=== PATIENT | male | born 1990 | race Caucasian/White ===

== ENCOUNTER 2016-10-02 03:32 | Emergency (ER) | payer SELFPAY ==
[2016-10-02 04:30] VITALS: BP 126/71; PULSE 76; RESP 16; TEMP 97.4; O2SAT 99
--- NOTE | 2016-10-02 06:01 | ED PDOC ---
Upper Extremity Pain/Injury Time Seen by Provider: 10/02/16 04:42 Chief Complaint (Nursing): Upper Extremity Problem/Injury Chief Complaint (Provider): Upper Extremity Injury History Per: Patient History/Exam Limitations: no limitations Onset/Duration Of Symptoms: Days (1x) Current Symptoms Are (Timing): Still Present Severity: Moderate Additional Complaint(s): 26 year old male with no pertinent medical history presents to the ED with complaints of an upper extremity injury that occurred yesterday. He reports that he fell while skateboarding last night, and woke up in the middle of the night with a swollen elbow. He reports having difficulty fully extending and flexing his arm and moving his hand. He reports icing the area and taking ibuprofen with no relief. He denies having numbness and tingling to the area or any other injuries. PMD: Dr. Jimenez Past Medical History Reviewed: Historical Data, Nursing Documentation, Vital Signs Vital Signs: Last Vital Signs Temp 97.4 F L 10/02/16 04:23 Pulse 76 10/02/16 04:23 Resp 16 10/02/16 04:23 BP 126/71 10/02/16 04:23 Pulse Ox 99 10/02/16 04:23 - Medical History PMH: Anxiety - Surgical History Other surgeries: right ACL surgery - Family History Family History: States: No Known Family Hx - Social History Current smoker - smoking cessation education provided: No Alcohol: None Drugs: Denies - Home Medications Home Medications: Ambulatory Orders Medication Instructions Recorded Esomeprazole Magnesium [Nexium] 20 mg PO QAM #30 ecc 03/19/15 - Allergies Allergies/Adverse Reactions: Allergies Allergy/AdvReac Type Severity Reaction Status Date / Time No Known Allergies Allergy Verified 03/19/15 21:32 Review of Systems ROS Statement: Except As Marked, All Systems Reviewed And Found Negative Musculoskeletal: Positive for: Arm Pain (left elbow pain) Neurological: Negative for: Weakness, Numbness, Headache Physical Exam - Reviewed Nursing Documentation Reviewed: Yes Vital Signs Reviewed: Yes - Physical Exam Appears: Positive for: Well, Non-toxic, No Acute Distress Head Exam: Positive for: ATRAUMATIC, NORMOCEPHALIC Skin: Positive for: Normal Color, Warm, Dry Neck: Positive for: Normal, Supple Cardiovascular/Chest: Positive for: Regular Rate, Rhythm Respiratory: Positive for: Normal Breath Sounds. Negative for: Respiratory Distress Extremity: Positive for: Capillary Refill (<2 second capillaary refill. <2 second radial pulse), Other (superficial abrasion on left lateral elbow. tenderness to palpation at site. no fluctuance. 5/5 strength in all nerves. 5/5 distal pulses of hands. left elbow: moderate effusion. light touch in tact. ). Negative for: Normal ROM (full flexion and extension of left elbow limited secondary to pain) Neurologic/Psych: Positive for: Alert, Oriented (3x) - ECG O2 Sat by Pulse Oximetry: 99 (RA) Pulse Ox Interpretation: Normal Medical Decision Making Medical Decision Makin:42 Initial impression: 26 year old male with left elbow pain. Rule out fracture. Initial plan: * motrin tab 600mg PO * XRay left 3 views * apply ice to affected area * reevaluation Scribe Attestation: Documented by Lauren Vogt, acting as a scribe for Carol Moreau MD. Provider Scribe Attestation: All medical record entries made by the Scribe were at my direction and personally dictated by me. I have reviewed the chart and agree that the record accurately reflects my personal performance of the history, physical exam, medical decision making, and the department course for this patient. I have also personally directed, reviewed, and agree with the discharge instructions and disposition.
--- NOTE | 2016-10-02 10:07 | RAD ---
PROCEDURE: Radiographs of the left elbow. HISTORY: LEFT elbow injury COMPARISON: No prior. FINDINGS: BONES: There is a minimally displaced fracture of the left radial head which appears to extend into the joint space margin. JOINTS: Normal. No osteoarthritis. SOFT TISSUES: Normal. JOINT EFFUSION: Moderate-sized joint effusion OTHER FINDINGS: None IMPRESSION: Minimally displaced fracture left radial and which appears to extend into the joint space margin. There is a moderate-sized joint effusion present
== END 2016-10-02 07:30 | disposition home or self-care (01) ==
LOC: H.ER 03:32
DX: S52.132A Displaced fracture of neck of left radius, initial encounter for closed fracture (principal); V00.131A Fall from skateboard, initial encounter; Y92.410 Unspecified street and highway as the place of occurrence of the external cause